=== PATIENT | female | born 1975 | race Caucasian/White ===

== ENCOUNTER → 2017-12-04 | Outpatient (CLI) | payer BC ==
[~2017-12-04] MED LIST: PRENTAB26 PO
== END | disposition home or self-care (01) ==
LOC: C.PAPS 11:38
PROVIDERS: ATTEND Obstetrics & Gynecology
DX: Z01.419 Encounter for gynecological examination (general) (routine) without abnormal findings (principal)

== ENCOUNTER 2018-03-21 14:54 | Emergency (ER) | payer BC ==
[~2018-03-21] VITALS: Ht 170.2 cm; Wt 61.1 kg
[2018-03-21 15:04] VITALS: Ht 170.2 cm; Wt 61.1 kg
[2018-03-21] MEDS ORDERED: ACETAMINOPHEN 500 MG TAB PO STA (15:37)
[2018-03-21] MEDS ORDERED: DIPHTHERIA/TETANUS/PERTUSSIS 0.5 ML SYR/VIAL IM. ONE (15:45)
[2018-03-21] MEDS ORDERED: ONDANSETRON 4MG OD TAB PO ONE (15:45)
[2018-03-21] MEDS ORDERED: LIDOCAINE 1% BUFFERED INJ 5 ML VIAL INFIL ONE (15:45)
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
[2018-03-21] MEDS ORDERED: CEPH500C PO (18:05)
[2018-03-21] MEDS ORDERED: ONDA4TAB10 SL (18:05)
[2018-03-21 18:34] VITALS: BP 110/66; PULSE 71; TEMP 36.4; O2SAT 97
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
== END 2018-03-21 18:35 | disposition home or self-care (01) ==
LOC: C.EDB 14:57 → C.EDA 18:35
DX: S09.90XA Unspecified injury of head, initial encounter (principal); S06.0X1A Concussion with loss of consciousness of 30 minutes or less, initial encounter; T14.8XXA Other injury of unspecified body region, initial encounter; S00.81XA Abrasion of other part of head, initial encounter; S40.212A Abrasion of left shoulder, initial encounter; S70.312A Abrasion, left thigh, initial encounter; S50.811A Abrasion of right forearm, initial encounter; S43.402A Unspecified sprain of left shoulder joint, initial encounter; S81.011A Laceration without foreign body, right knee, initial encounter; V18.0XXA Pedal cycle driver injured in noncollision transport accident in nontraffic accident, initial encounter; Y93.55 Activity, bike riding; Z23 Encounter for immunization